=== PATIENT | female | born 1990 | race Caucasian/White ===

== ENCOUNTER → 2019-01-07 | Outpatient (CLI) | payer OTHER | END | disposition home or self-care (01) | LOC: RAD 11:44 | DX: M25.542 Pain in joints of left hand (principal) ==

== ENCOUNTER → 2020-03-29 | Outpatient (CLI) | payer SELFPAY | END | disposition home or self-care (01) | LOC: COVID19 10:57 | DX: R50.9 Fever, unspecified (principal); Z20.828 Contact with and (suspected) exposure to other viral communicable diseases ==

== ENCOUNTER → 2020-03-30 | Outpatient (CLI) | payer OTHER | END | disposition home or self-care (01) | LOC: RAD 14:01 | DX: R05 Cough (principal) ==

== ENCOUNTER 2020-08-03 16:40 | Emergency (ER) | payer OTHER ==
[~2020-08-03] VITALS: Wt 74.8 kg
[2020-08-03] MEDS ORDERED: PREDNISONE50 MG PO (16:56)
== END 2020-08-03 17:07 | disposition home or self-care (01) ==
LOC: ED 16:40
DX: L27.1 Localized skin eruption due to drugs and medicaments taken internally (principal); T36.1X5A Adverse effect of cephalosporins and other beta-lactam antibiotics, initial encounter; Z88.0 Allergy status to penicillin; Z88.1 Allergy status to other antibiotic agents; Z88.8 Allergy status to other drugs, medicaments and biological substances; Y92.89 Other specified places as the place of occurrence of the external cause